=== PATIENT | female | born 1995 | race African-American/Black ===

== ENCOUNTER 2018-09-15 05:05 | Inpatient (IN) | payer MEDICAID ==
[~2018-09-15] VITALS: Ht 157.5 cm; Wt 98.0 kg
[~2018-09-15 05:05] MED LIST: HYDROCODON-ACE1 EAC7 PO; IBUPROFEN600 MG PO; PRENAVITE1 TAB PO
[2018-09-15] MEDS ORDERED: PRENAVITE1 TAB PO (05:18)
[2018-09-15 05:43] VITALS: BP 115/64; BMI 39.6
[2018-09-15 05:58] LABS: HEMATOCRIT 35.9 % (36.0-48.0); HEMOGLOBIN 11.9 g/dL (12-16); MCH 29.6 pg (26.0-34.0); MCHC 33.1 g/dL (31.0-37.0); MCV 89.3 fL (80.0-100.0); MEAN PLATELET VOLUME 11.3 fL (7.4-10.4); RBC 4.02 10x6/uL (4.00-5.40); RDW 13.2 % (11.5-14.5); WBC 8.2 10x3/uL (4.8-10.8)
[2018-09-15 06:08] LABS: APPEARANCE CLEAR (CLEAR); BILIRUBIN NEGATIVE (NEGATIVE); COLOR YELLOW (YELLOW); GLUCOSE NEGATIVE (NEGATIVE); KETONE NEGATIVE (NEGATIVE); NITRITE NEGATIVE (NEGATIVE); PROTEIN NEGATIVE (NEGATIVE); SPECIFIC GRAVITY 1.005 (1.005-1.020); UROBILINOGEN NORMAL (NORMAL)
--- NOTE | 2018-09-15 19:00 | NUR ---
REPORT RECEIVED FROM GIL PEÑA. NO REPORTS OF DISTRESS RECEIVED.
[2018-09-15 19:30] VITALS: BP 115/72
--- NOTE | 2018-09-15 19:30 | NUR ---
PATIENT SITTING UP IN BED. ASSESSMENT AND VITAL SIGNS DONE AT THIS TIME. RESPIRATIONS AT EASE. LUNG SOUNDS CLEAR IN ALL GRANADOS. HEART REGULAR RATE AND RHYTHM. ABDOMEN SOFT AND NON TENDER. BOWEL SOUNDS PRESENT IN ALL QUADRANTS. FUNDUS FIRM AND 1 BELOW UMBILICUS. LOCHIA RUBRA AND SMALL AMOUNT NOTED ON ANNMARIE PAD. NO EDEMA NOTED TO EXTREMITIES. PATIENT DENIES PAIN AT THIS TIME. BED IN LOWEST POSITION, SIDE RAILS UP X 2, C/L AND WATER WITHIN REACH. PATIENT DENIES ANY FURTHER NEEDS.
--- NOTE | 2018-09-15 20:40 | NUR ---
PATIENT SITTING UP IN BED. AT BEDSIDE IN OPEN CRIB. PATIENT STATES PAIN 7 OUT OF 10. PRN NORCO 5/325 ADMINISTERED PO AT THIS TIME. PATIENT DENIES ANY FURTHER NEEDS. BED IN LOWEST POSITION, SIDE RAILS UP X 2, C/L AND WATER WITHIN REACH.
--- NOTE | 2018-09-15 22:07 | NUR ---
PATIENT SITTING UP IN BED EATING DINNER. AT BEDSIDE IN OPEN CRIB. PATIENT STATES PAIN 8 OUT OF 10. MOTRIN 600 MG ADMINISTERED PO AT THIS TIME. PATIENT DENIES ANY FURTHER NEEDS. BED IN LOWEST POSITION, SIDE RAILS UP X 2, C/L AND WATER WITHIN REACH.
--- NOTE | 2018-09-15 23:00 | NUR ---
PATIENT AMBULATING IN ROOM WITH STEADY GAIT. PATIENT VOIDED 300 CC'S OF BLOOD TINGE URINE. PATIENT STATES PAIN 4 OUT OF 10. DENIES ANY NEEDS OR CONCERNS. NO SIGNS OF DISTRESS NOTED. C/L AND WATER WITHIN REACH.
--- NOTE | 2018-09-16 01:00 | NUR ---
PATIENT LYING IN BED WITH EYES CLOSED. RESPIRATIONS AT EASE. NO SIGNS OF DISTRESS NOTED. BED IN LOWEST POSITION, SIDE RAILS UP X 2, C/L AND WATER WITHIN REACH.
--- NOTE | 2018-09-16 02:46 | NUR ---
PATIENT SITTING UP IN BED HOLDING INFANT. STATES PAIN 8 OUT OF 10. PRN NORCO 5/325 ADMINISTERED PO AT THIS TIME. PATIENT DENIES FURTHER NEEDS. BED IN LOWEST POSITION, SIDE RAILS UP X 2, C/L AND WATER WITHIN REACH.
--- NOTE | 2018-09-16 03:30 | NUR ---
PATIENT LYING IN BED WITH EYES CLOSED. EASILY AROUSED. STATES PAIN LEVEL 4 OUT OF 10 AT THIS TIME. PATIENT STATES SHE HAD WENT TO [place] AND VOIDED. 400 CC'S OF CLEAR YELLOW URINE WITH SMALL CLOTS NOTED. PATIENT DENIES ANY NEEDS OR CONCERNS. BED IN LOWEST POSITION, SIDE RAILS UP X 2, C/L AND WATER WITHIN REACH.
--- NOTE | 2018-09-16 05:25 | NUR ---
PATIENT SITTING UP IN BED HOLDING INFANT. STATES PAIN 7 OUT OF 10. PRN MOTRIN 600 MG ADMINISTERED PO AT THIS TIME.PATIENT DENIES FURTHYER NEEDS. BED IN LOWEST POSITION, SIDE RAILS UP X 2, C/L AND WATER WITHIN REACH.
--- NOTE | 2018-09-16 06:30 | NUR ---
PATIENT LYING IN BED WITH EYES CLOSED. RESPIRATIONS AT EASE. NO SIGNS OF DISTRESS NOTE. BED IN LOWEST POSITION, SIDE RAILS UP X 2, C/L AND WATER WITHIN REACH.
[2018-09-16 07:18] LABS: RAPID PLASMA REAGIN Non Reactive (Non Reactive)
[2018-09-16 07:45] VITALS: BP 108/56
--- NOTE | 2018-09-16 07:45 | NUR ---
RECEIVED PT SITTING UPRIGHT IN BED. AAO X 3. VSS. HRRR WITHOUT AUDIBLE MURMUR. BBS CLEAR. BS X 4. ABDOMEN SOFT/NON-DISTENDED. FUNDUS FIRM AT U/2. RUBRA LOCHIA SMALL AMT. PT DENIES PASSING CLOTS OR HEAVY BLEEDING. PERINEUM WITHOUT EDEMA NOTED. NEG HOMANS' SIGN. PPP. NO EDEMA NOTED TO BLE. PT STATES C/O ABDOMINAL CRAMPING OF "8" ON 0-10 PAIN SCALE. SR UP X 2. CALL LIGHT IN REACH.
--- NOTE | 2018-09-16 08:46 | NUR ---
PT SITTING UP IN BED WITH IN CRIB AT BEDSIDE. DENIES NEEDS AT THIS TIME.
--- NOTE | 2018-09-16 09:01 | NUR ---
PT C/O ABDOMINAL CRAMPING OF "7" ON 0-10 PAIN SCALE. NORCO 5/325 GIVEN PO ORDERED. PT INSTRUCTED ON MED. VERBALIZES UNDERSTANDING.
[2018-09-16 09:43] VITALS: Ht 157.5 cm; Wt 98.0 kg
--- NOTE | 2018-09-16 09:52 | NUR ---
PT SITTING UP IN BED. CONSUMING BREAKFAST. DENIES NEEDS OR C/O.
--- NOTE | 2018-09-16 11:27 | NUR ---
PT SITTING UP IN BED. INFANT. MOTRIN 600 MG GIVEN PO ORDERED FOR PT C/O ABDOMINAL CRAMPING.
--- NOTE | 2018-09-16 12:45 | NUR ---
PT SITTING UP IN BED. VISITS WITH FAMILY. DENIES NEEDS OR C/O.
--- NOTE | 2018-09-16 14:00 | NUR ---
PT SITTING UP IN BED. VISTS WITH FAMILY. DR ANNE TO ROOM. VISITS WITH PT.
[2018-09-16 14:23] LABS: BASOPHILS 0.2 % (0-2); EOSINOPHILS 2.9 % (0-7); HEMOGLOBIN 11.3 g/dL (12-16); IMMATURE GRANULOCYTES 0.3 % (0-5); LYMPHOCYTES 32.6 % (15-50); MCH 29.7 pg (26.0-34.0); MCHC 33.2 g/dL (31.0-37.0); MCV 89.2 fL (80.0-100.0); MEAN PLATELET VOLUME 11.2 fL (7.4-10.4); MONOCYTES 9.1 % (2-11); NEUTROPHILS 54.9 % (40-80); PLATELET COUNT 220 10x3/uL (130-400); RBC 3.81 10x6/uL (4.00-5.40); RDW 13.3 % (11.5-14.5); WBC 9.1 10x3/uL (4.8-10.8)
--- NOTE | 2018-09-16 16:04 | NUR ---
PT C/O PAIN TO LEFT HAND TO SL SITE. SL DC'D WITH CATHELON INTACT. PRESSURE BANDAGE TO SITE.
--- NOTE | 2018-09-16 17:51 | NUR ---
PT C/O ABDOMINAL CRAMPING OF "7" ON 0-10 PAIN SCALE. NORCO 5/325 GIVEN PO ORDERED. PT INSTRUCTED ON MED. VERBALIZES UNDERSTANDING.
--- NOTE | 2018-09-16 18:37 | NUR ---
PT SITTING UP IN BED. TALKING ON PHONE. STATES PAIN NOW "2" ON 0-10 PAIN SCALE.
[2018-09-16 19:30] VITALS: BP 107/52
--- NOTE | 2018-09-16 19:30 | NUR ---
ASSESSMENT PER FLOW, VS OBTAINED, FF, ML, U/U, PT REPORTS FLATUS, NO BM TODAY, LITE BLEEDING WITH NO CLOTS, AND VOIDING WITH NO DIFFICULTY, PT USING ANNMARIE CARE INST., DENIES PAIN AT THIS TIME, REQUESTED AND SERVED CUP OF ICE, INFANT AND FOB IN ROOM
--- NOTE | 2018-09-16 20:38 | NUR ---
PT RESTING, WATCHING TV, AT SIDE, DENIES NEEDS OR PAIN AT THIS TIME, FOB ON COUCH
--- NOTE | 2018-09-16 21:20 | NUR ---
PATIENT PROVIDED WITH TOWELS FOR SHOWER PER REQUEST. PT HOLDING INFANT IN ARMS GETTING READY TO BOTTLE FEED. PT DENIES OTHER NEEDS.
--- NOTE | 2018-09-16 21:51 | NUR ---
PT 3D ARTIST LIGHT, C/O CRAMPING, ADM MAGDALENA PER MD ORDERS, SEE EMAR, PT DENIES FURTHER NEEDS AT THIS TIME
--- NOTE | 2018-09-16 22:38 | NUR ---
PT CONTINUES HOLDING , REPORTS CRAMPING 0/10, DENIES NEEDS, FOB AT BEDSIDE
--- NOTE | 2018-09-17 00:12 | NUR ---
PT AROUSES TO OPENING OF DOOR, DENIES NEEDS OR PAIN AT THIS TIME, INFANT IN OPEN CRIB CART AND FOB AT BEDSIDE
--- NOTE | 2018-09-17 02:17 | NUR ---
PT AWAKE, INFANT IN OPEN CRIB CART AT BEDSIDE, FOB ASLEEP ON COUCH, PT DENIES NEEDS OR PAIN AT THIS TIME
--- NOTE | 2018-09-17 04:09 | NUR ---
PT RESTING WITH EYES CLOSED, RESP QUIET, NO DISTRESS NOTED, LEFT UNDISTURBED AT THIS TIME, IN OPEN CRIB CART AND FOB ASLEEP AT THIS TIME
--- NOTE | 2018-09-17 04:44 | NUR ---
PT BANQUET BARTENDER LIGHT, PT C/O PERINIUM PAIN AND CRAMPING, ADM NORCO AND MOTRIN PER MD ORDERS, SEE EMAR, PT REQUESTED AND PROVIDED TOILET PAPER, PT DENIES FURTHER NEEDS, PT HOLDING INFANT, FOB ASLEEP ON COUCH
--- NOTE | 2018-09-17 06:22 | NUR ---
PT RESTING WITH EYES CLOSED, RESP QUIET, NO DISTRESS NOTED, LEFT UNDISTURBED AT THIS TIME, IN OPEN CRIB CART AND FOB ASLEEP ON COUCH
[2018-09-17 07:50] VITALS: BP 115/70
--- NOTE | 2018-09-17 07:50 | NUR ---
RECEIVED PT SITTING UP IN BED. VISITS WITH SO. VSS. HRRR WITHOUT AUDIBLE MURMUR. BBS CLEAR. BS X 4. ABDOMEN SOFT/NON-DISTENDED. FUNDUS FIRM AT U/2. RUBRA LOCHIA SMALL AMT. NO CLOTS OR HEAVY BLEEDING PER PT STATES. NEG HOMANS' SIGN. PPP. NO EDEMA NOTED TO BLE. PT DENIES PAIN OR NEEDS. SR UP X2. CALL LIGHT IN REACH.
[2018-09-17] MEDS ORDERED: HYDROCODON-ACE1 EAC7 PO (08:16)
[2018-09-17] MEDS ORDERED: IBUPROFEN600 MG PO (08:17)
--- NOTE | 2018-09-17 08:58 | NUR ---
PT SITTING UP IN BED. CONSUMING BREAKFAST. DENIES NEEDS OR C/O.
--- NOTE | 2018-09-17 10:45 | NUR ---
PT LYING TO RIGHT SIDE IN BED. EYES CLOSED. RESP NON-LABORED. PT NOT DISTURBED TO ALLOW FOR REST. SR UP X 2. CALL LIGHT IN REACH. SO IN ROOM WITH PT.
--- NOTE | 2018-09-17 13:09 | NUR ---
PT C/O ABDOMINAL CRAMPING OF "7" ON 0-10 PAIN SCALE. NORCO 5/325 GIVEN PO ORDERED. INSTRUCTED ON MED. VERBALIZES UNDERSTANDING.
--- NOTE | 2018-09-17 14:04 | NUR ---
PT SITTING UP IN BED. CARING FOR INFANT. STATES PAIN NOW "3" ON 0-10 PAIN SCALE. DENIES NEEDS OR C/O.
--- NOTE | 2018-09-17 15:16 | NUR ---
DR ANNE NOTIFIED OF DISCHARGE ORDER ON BABY. ORDERS RECEIVED TO DC HOME.
--- NOTE | 2018-09-17 16:00 | NUR ---
DISCHARGE INSTRUCTIONS GIVEN TO PT. PT VERBALIZES UNDERSTANDING OF ALL INSTRUCTIONS. COPIES GIVEN TO PT. PT GIVEN RX FOR NORCO AND MOTRIN. PT PREPARES FOR DISCHARGE.
--- NOTE | 2018-09-17 16:30 | NUR ---
PT READY FOR DISCHARGE. DISCHARGED WITH IN STABLE CONDITION VIA WHEELCHAIR PER Orlando XAVIER RN TO PRIVATE VEHICLE.
== END 2018-09-17 16:30 | disposition home or self-care (01) | DRG 807 ==
LOC: D.LD 05:05
PROVIDERS: ADMIT Obstetrics & Gynecology; ATTEND Obstetrics & Gynecology
PROC: 10E0XZZ Delivery of Products of Conception, External Approach (ICD-10-PCS; principal; 2018-09-15)
PROC: 10907ZC Drainage of Amniotic Fluid, Therapeutic from Products of Conception, Via Natural or Artificial Opening (ICD-10-PCS; 2018-09-15)
DX: O80 Encounter for full-term uncomplicated delivery (principal); Z37.0 Single live birth; Z3A.39 39 weeks gestation of pregnancy